=== PATIENT | female | born 1960 | race Caucasian/White ===

== ENCOUNTER 2024-11-27 13:21 | Emergency (ER) | payer OTHER ==
[~2024-11-27] VITALS: Ht 177.8 cm; Wt 90.7 kg
== END 2024-11-27 15:23 | disposition home or self-care (01) ==
LOC: ER 13:21
DX: S51.812A Laceration without foreign body of left forearm, initial encounter (principal); W54.1XXA Struck by dog, initial encounter
CPT/HCPCS: 12001; 90471; 90715; 99282-25